=== PATIENT | female | born 1965 | race Caucasian/White ===

== ENCOUNTER → 2019-08-15 | Outpatient (CLI) | payer BC ==
--- NOTE | 2019-08-15 09:54 | FL ---
EXAMINATION TYPE: FL barium swallow DATE OF EXAM: 08/15/2019 CLINICAL HISTORY: Gastroesophageal reflux with history of hiatal hernia. TECHNIQUE: A double contrast esophagram is performed utilizing air and barium. A total of 1.15 enid ayla of fluoroscopic time was utilized during procedure. 39 fluoroscopic images were saved during the examination. COMPARISON: None FINDINGS: The esophagus shows normal motility and emptying into the stomach. No evidence of strictur e noted. There is a small hiatal hernia demonstrated at the time the largest in the right lateral dec ubitus position. Moderate degree intraesophageal reflux was seen during real time performance of this study. Incidental note of a left lateral [place]-Dandre diverticulum. IMPRESSION: 1. Small hiatal hernia and moderate intraesophageal reflux 2. Incidentally noted Óscar-Dandre diverticulum.
== END | disposition home or self-care (01) ==
LOC: RADUSWWP 08:47
PROVIDERS: ATTEND Surgery Plastic and Reconstructive Surgery
DX: K44.9 Diaphragmatic hernia without obstruction or gangrene (principal); K21.9 Gastro-esophageal reflux disease without esophagitis; Z88.5 Allergy status to narcotic agent
CPT/HCPCS: 74220

== ENCOUNTER 2019-09-28 07:29 | Day surgery (SDC) | payer BC ==
[2019-09-26 12:24] VITALS: BMI 45.7
[~2019-09-28 07:29] MED LIST: LACTATED RINGERS 1,000 ML IV SCH; LIDOCAINE 1% 20 ML VIAL (10MG/ML) FOR IV START INTRADERMA PRN
[2019-09-28 07:52] VITALS: RESP 16; TEMP 97.8
[2019-09-28 08:04] LABS: Glucose,Whole Blood 223 mg/dL (75-99)
[2019-09-28] MEDS ORDERED: PROPOFOL 10 MG/ML 20 ML VIAL IV ONE (08:07)
[2019-09-28] MEDS ORDERED: LIDOCAINE 1% INJ 10MG/ML (20 ML MDV) ONE (08:07)
--- NOTE | 2019-09-28 08:10 | P.GSHP ---
History of Present Illness H&P Date: 09/28/19 CHIEF COMPLAINT: GERD HISTORY OF PRESENT ILLNESS: The patient is a 54-year-old female who presents reports gastroesophageal reflux disease. Upper endoscopy was offered for further evaluation and management. PAST MEDICAL HISTORY: Please see list. PAST SURGICAL HISTORY: Please see list. MEDICATIONS: Please see list. ALLERGIES: Please see list. SOCIAL HISTORY: No illicit drug use FAMILY HISTORY: No reports of Crohn disease or ulcerative colitis. REVIEW OF ORGAN SYSTEMS: CONSTITUTIONAL: No reports of fevers or chills. GI: Denies any blood in stools or constipation. PHYSICAL EXAM: VITAL SIGNS: Stable GENERAL: Well-developed and pleasant in no acute distress. HEENT: No scleral icterus. Extraocular movements grossly intact. Moist buccal mucosa. NECK: Supple without lymphadenopathy. CHEST: Unlabored respirations. Equal bilateral excursions. CARDIOVASCULAR: Regular rate and rhythm. Distal 2+ pulses. ABDOMEN: Soft, nondistended. MUSCULOSKELETAL: No clubbing, cyanosis, or edema. ASSESSMENT: 1. Gastroesophageal reflux disease PLAN: 1. Recommend proceeding with an upper endoscopy Past Medical History Past Medical History: Diabetes Mellitus, GERD/Reflux, Hyperlipidemia, Hypertension Additional Past Medical History / Comment(s): chronic idiopathic urticaria, hiatal hernia, bronchitis in July History of Any Multi-Drug Resistant Organisms: None Reported Past Surgical History: Back Surgery, Orthopedic Surgery Additional Past Surgical History / Comment(s): rods,plates & screws in back, left knee surg. Past Anesthesia/Blood Transfusion Reactions: Postoperative Nausea & Vomiting (PONV) Additional Past Anesthesia/Blood Transfusion Reaction / Comment(s): has had once w/prior procedure Smoking Status: Never smoker Medications and Allergies Home Medications Medication Instructions Recorded Confirmed Type Aspirin 81 mg PO DAILY 09/26/19 09/28/19 History Calcium Carbonate/Vitamin D3 1 each PO DAILY 09/26/19 09/28/19 History [Calcium 600-Vit D3 400 Tablet] Cetirizine HCl [Zyrtec] 10 mg PO DAILY 09/26/19 09/28/19 History Enalapril [Vasotec] 10 mg PO DAILY 09/26/19 09/28/19 History Ferrous Sulfate [Feosol] 65 mg PO DAILY 09/26/19 09/28/19 History INSULIN ASPART (NovoLOG) [NovoLOG 0 unit SQ AC-TID 09/26/19 09/28/19 History (formulary)] Insulin Degludec [Tresiba] 50 units SQ QAM 09/26/19 09/28/19 History Lansoprazole [Prevacid] 30 mg PO DAILY 09/26/19 09/28/19 History Magnesium 400 mg PO DAILY 09/26/19 09/28/19 History Montelukast [Singulair] 10 mg PO DAILY 09/26/19 09/28/19 History Multivitamins, Thera [Multivitamin 1 tab PO DAILY 09/26/19 09/28/19 History (formulary)] Omalizumab [Xolair] 150 mg SQ Q30D 09/26/19 09/28/19 History [place]-3 Acid Ethyl Esters [Lovaza] 2 gm PO BID 09/26/19 09/28/19 History Simvastatin [Zocor] 20 mg PO HS 09/26/19 09/28/19 History Allergies Allergy/AdvReac Type Severity Reaction Status Date / Time hydromorphone [From Dilaudid] Allergy Rash/Hives Verified 09/26/19 10:52 Surgical - Exam Vital Signs Temp Pulse Resp BP Pulse Ox 97.8 F 87 16 160/85 95 09/28/19 07:45 09/28/19 07:45 09/28/19 07:45 09/28/19 07:45 09/28/19 07:45 Results - Labs Abnormal Lab Results - Last 24 Hours (Table) 09/28/19 Range/Units 07:50 POC Glucose (mg/dL) 223 H (75-99) mg/dL
--- NOTE | 2019-09-28 08:21 | P.PCN ---
Date of Procedure: 09/28/19 Description of Procedure: PREOPERATIVE DIAGNOSIS: Gastroesophageal reflux disease. Morbid obesity. POSTOPERATIVE DIAGNOSIS: Morbid obesity. Gastritis. Gastroesophageal reflux disease. Diaphragmatic hiatal hernia OPERATION: Esophagogastroduodenoscopy with biopsies along antrum. SURGEON: Sweta Gee MD ANESTHESIA: MAC. INDICATIONS: The patient is a 54-year-old female who presents with a history of reflux disease. Benefits and risks of the procedure were described. Informed consent was obtained. DESCRIPTION: The patient was brought into the endoscopy suite and laid in the left lateral decubitus position. An Olympus gastroscope was passed along the posterior oropharynx down to the distal esophagus where the squamocolumnar junction was encountered at 35 cm from the incisors. The stomach was entered and no bile reflux was found. Additional findings are listed below. Biopsies with cold f orceps were obtained of the antrum. The first through third portion of the duodenum was examined and unremarkable. Retroflexion of the scope confirmed Hill grade 4 lower esophageal valve. The squamocolumnar junction demonstrated LA grade B erosive esophagitis. The stomach was desufflated. The patient tolerated the procedure well. FINDINGS: Squamocolumnar junction 35 cm from the incisors. Diaphragmatic hiatus at 40 cm. Hiatal hernia, 5 cm Hill grade 4 lower esophageal valve. LA grade B erosive esophagitis. No active duodenitis. Chronic gastritis Few gastric polyps along the gastric cardia RECOMMENDATIONS: 1. Recommend repair of symptomatic diaphragmatic hiatal hernia 2. Upper endoscopy as needed. Plan - Discharge Summary Discharge Rx Participant: No New Discharge Prescriptions: Continue Multivitamins, Thera [Multivitamin (formulary)] 1 tab PO DAILY Aspirin 81 mg PO DAILY INSULIN ASPART (NovoLOG) [NovoLOG (formulary)] 0 unit SQ AC-TID Ferrous Sulfate [Iron (65 MG Elemental)] 65 mg PO DAILY Cetirizine HCl [Zyrtec] 10 mg PO DAILY Montelukast [Singulair] 10 mg PO DAILY Enalapril [Vasotec] 10 mg PO DAILY Simvastatin [Zocor] 20 mg PO HS [place]-3 Acid Ethyl Esters [Lovaza] 2 gm PO BID Lansoprazole [Prevacid] 30 mg PO DAILY Omalizumab [Xolair] 150 mg SQ Q30D Magnesium 400 mg PO DAILY Insulin Degludec [Tresiba] 50 units SQ QAM Calcium Carbonate/Vitamin D3 [Calcium 600-Vit D3 400 Tablet] 1 each PO DAILY Discharge Medication List Aspirin 81 mg PO DAILY 09/26/19 [History] Calcium Carbonate/Vitamin D3 [Calcium 600-Vit D3 400 Tablet] 1 each PO DAILY 09/26/19 [History] Cetirizine HCl [Zyrtec] 10 mg PO DAILY 09/26/19 [History] Enalapril [Vasotec] 10 mg PO DAILY 09/26/19 [History] Ferrous Sulfate [Iron (65 MG Elemental)] 65 mg PO DAILY 09/26/19 [History] INSULIN ASPART (NovoLOG) [NovoLOG (formulary)] 0 unit SQ AC-TID 09/26/19 [History] Insulin Degludec [Tresiba] 50 units SQ QAM 09/26/19 [History] Lansoprazole [Prevacid] 30 mg PO DAILY 09/26/19 [History] Magnesium 400 mg PO DAILY 09/26/19 [History] Montelukast [Singulair] 10 mg PO DAILY 09/26/19 [History] Multivitamins, Thera [Multivitamin (formulary)] 1 tab PO DAILY 09/26/19 [History] Omalizumab [Xolair] 150 mg SQ Q30D 09/26/19 [History] [place]-3 Acid Ethyl Esters [Lovaza] 2 gm PO BID 09/26/19 [History] Simvastatin [Zocor] 20 mg PO HS 09/26/19 [History] Follow up Appointment(s)/Referral(s): Sweta Gee MD [STAFF PHYSICIAN] - 10/11/19 Patient Instructions/Handouts: *Surgery [facility] - (Anesthesia) Endoscopy Discharge Instructions, Upper Endoscopy (DC), Hiatal Hernia (DC) Discharge Disposition: HOME SELF-CARE
[2019-09-28 08:24] VITALS: BP 140/83; PULSE 90
== END 2019-09-28 08:59 | disposition home or self-care (01) ==
LOC: ORWHC2ENDO 07:29
PROVIDERS: ATTEND Surgery Plastic and Reconstructive Surgery
DX: K29.50 Unspecified chronic gastritis without bleeding (principal); K21.0 Gastro-esophageal reflux disease with esophagitis; K22.10 Ulcer of esophagus without bleeding; K44.9 Diaphragmatic hernia without obstruction or gangrene; K31.7 Polyp of stomach and duodenum; I10 Essential (primary) hypertension; E11.9 Type 2 diabetes mellitus without complications; E78.5 Hyperlipidemia, unspecified; E66.01 Morbid (severe) obesity due to excess calories; L50.1 Idiopathic urticaria; Z88.5 Allergy status to narcotic agent; Z79.4 Long term (current) use of insulin; Z79.82 Long term (current) use of aspirin; Z79.899 Other long term (current) drug therapy; Z98.1 Arthrodesis status; Z98.890 Other specified postprocedural states; Z68.42 Body mass index [BMI] 45.0-49.9, adult
CPT/HCPCS: 43239; 88305; J2001; J2704

== ENCOUNTER → 2019-10-03 | Outpatient (CLI) | payer BC | END | disposition home or self-care (01) | LOC: LABWHC1 13:35 | PROVIDERS: ATTEND Surgery Plastic and Reconstructive Surgery | DX: Z01.818 Encounter for other preprocedural examination (principal) | CPT/HCPCS: 93005 ==

== ENCOUNTER → 2020-03-02 | Day surgery (SDC) | payer BC ==
[2020-02-28 10:26] VITALS: BMI 44.8
[~2020-03-02] MED LIST changes: +ACETAMINOPHEN TAB 500 MG TAB ONE; +ACETAMINOPHEN TAB 500 MG TAB PO STA; +CHLORHEXIDINE GLUCONATE 15 ML CUP MUCOUS MEM ONE; +DEXAMETHASONE SOD PHOSPHATE 10 MG/ML 1 ML VIAL IV ONE; +GABAPENTIN 300 MG CAP PO ONE; +HEPARIN SODIUM,PORCINE 5,000 UNIT/ML 1 ML VIAL ONE; +HEPARIN SODIUM,PORCINE 5,000 UNIT/ML 1 ML VIAL SQ ONE; +INSULIN ASPART (NovoLOG) 100 UNIT/ML VIAL SQ ONE; -LACTATED RINGERS 1,000 ML IV SCH; +LIDOCAINE 1% (10MG/ML) FOR IV START INTRADERMA ONE; -LIDOCAINE 1% 20 ML VIAL (10MG/ML) FOR IV START INTRADERMA PRN; +MIDAZOLAM 2 MG/2 ML VIAL IV PRN; +ONDANSETRON 4 MG/2 ML VIAL IVP ONE; +ONDANSETRON 4 MG/2 ML VIAL ONE; +ONDANSETRON ODT 4 MG TAB PO ONE; +PANTOPRAZOLE 40 MG/10 ML VIAL IV STA; +SCOPOLAMINE 1.5MG/72HR PATCH TRANSDERM ONE; +SCOPOLAMINE 1.5MG/72HR PATCH TRANSDERM STA; +TAMSULOSIN 0.4 MG CAP.ER.24H PO ONE; +fentaNYL (PF) 50 MCG/ML 2 ML AMP IV PRN
--- NOTE | 2020-03-02 06:23 | P.GSHP ---
History of Present Illness H&P Date: 03/02/20 CHIEF COMPLAINT: Paraesophageal hiatal hernia with gastroesophageal reflux disease. HISTORY OF PRESENT ILLNESS: The patient is a 54-year-old female who presents with paraesophageal hiatal hernia. She has completed an esophageal manometry including upper endoscopy workup. Now she presents for surgical intervention. PAST MEDICAL HISTORY: Please see list. PAST SURGICAL HISTORY: Please see list. MEDICATIONS: Please see list. ALLERGIES: Please see list. SOCIAL HISTORY: No illicit drug use FAMILY HISTORY: No reports of Crohn disease or ulcerative colitis. REVIEW OF ORGAN SYSTEMS: CONSTITUTIONAL: No reports of fevers or chills. GI: Denies any blood in stools or constipation. PHYSICAL EXAM: VITAL SIGNS: Stable GENERAL: Well-developed pleasant and in no acute distress. HEENT: No scleral icterus. Extraocular movements grossly intact. Moist buccal mucosa. NECK: Supple without lymphadenopathy. CHEST: Unlabored respirations. Equal bilateral excursions. CARDIOVASCULAR: Regular rate and rhythm. Distal 2+ pulses. ABDOMEN: Soft, nondistended. No peritoneal signs. MUSCULOSKELETAL: No clubbing, cyanosis, or edema. SKIN: Well-perfused. Good skin turgor. MANOMETRY: Shows no evidence of achalasia or scleroderma. ASSESSMENT: 1. Diaphragmatic paraesophageal hiatal hernia with severe gastroesophageal reflux disease. PLAN: 1. Recommend proceeding with a robotic paraesophageal hiatal hernia with possible mesh. 2. Benefits and risks of surgical intervention was discussed including possibility of open technique. 3. Inpatient hospitalization recommended of 2 nights 4. DVT prophylaxis. 5. Antibiotic prophylaxis. Past Medical History Past Medical History: Diabetes Mellitus, GERD/Reflux, Hyperlipidemia, Hypertension, Osteoarthritis (OA) Additional Past Medical History / Comment(s): chronic idiopathic urticaria, hiatal hernia, bronchitis, CATARACTS, TYPE 2 DIABETIC-DEXCOM G6 GLUCOSE MONITORING History of Any Multi-Drug Resistant Organisms: None Reported Past Surgical History: Back Surgery, Orthopedic Surgery Additional Past Surgical History / Comment(s): rods,plates & screws in back, left knee surg. Past Anesthesia/Blood Transfusion Reactions: Postoperative Nausea & Vomiting (PONV) Additional Past Anesthesia/Blood Transfusion Reaction / Comment(s): has had once w/prior procedure Smoking Status: Never smoker - Past Family History Father Family Medical History: Cancer Medications and Allergies Home Medications Medication Instructions Recorded Confirmed Type Aspirin 81 mg PO DAILY 09/26/19 02/28/20 History Calcium Carbonate/Vitamin D3 1 each PO DAILY 09/26/19 02/28/20 History [Calcium 600-Vit D3 400 Tablet] Cetirizine HCl [Zyrtec] 10 mg PO DAILY 09/26/19 02/28/20 History Enalapril [Vasotec] 15 mg PO DAILY 09/26/19 02/28/20 History Ferrous Sulfate [Iron (65 MG 65 mg PO DAILY 09/26/19 02/28/20 History Elemental)] Insulin Degludec [Tresiba] 26 units SQ QAM 09/26/19 02/28/20 History Lansoprazole [Prevacid] 30 mg PO DAILY 09/26/19 02/28/20 History Magnesium 400 mg PO HS 09/26/19 02/28/20 History Montelukast [Singulair] 10 mg PO DAILY 09/26/19 02/28/20 History Multivitamins, Thera [Multivitamin 1 tab PO DAILY 09/26/19 02/28/20 History (formulary)] Omalizumab [Xolair] 150 mg SQ Q30D 09/26/19 02/28/20 History [place]-3 Acid Ethyl Esters [Lovaza] 2 gm PO BID 09/26/19 02/28/20 History Simvastatin [Zocor] 20 mg PO HS 09/26/19 02/28/20 History Insulin Aspart (Niacinamide) 0 units SQ TID-W/MEALS 02/28/20 02/28/20 History [Fiasp 100 Unit/ml Flextouch] Allergies Allergy/AdvReac Type Severity Reaction Status Date / Time hydromorphone [From Dilaudid] Allergy Rash/Hives Verified 02/28/20 09:18
[2020-03-02 07:28] VITALS: BP 142/66; PULSE 93; RESP 18; TEMP 97.8
[2020-03-02] MEDS: LACTATED RINGERS 1,000 ML IV SCH ×2 (07:50→09:25)
[2020-03-02 07:52] LABS: Glucose,Whole Blood 349 mg/dL (75-99)
[2020-03-02 08:11] LABS: Basophils # (A) 0.1 k/uL (0-0.2); Basophils % (A) 1 %; Eosinophils # (A) 0.1 k/uL (0-0.7); Eosinophils % (A) 1 %; HCT 44.7 % (34.0-46.0); HGB 14.8 gm/dL (11.4-16.0); Lymphocytes # (A) 2.3 k/uL (1.0-4.8); Lymphocytes % (A) 28 %; MCH 28.2 pg (25.0-35.0); MCHC 33.1 g/dL (31.0-37.0); Mean Platelet Volume 8.2; Monocytes # (A) 0.4 k/uL (0-1.0); Monocytes % (A) 5 %; Neutrophils # (A) 5.1 k/uL (1.3-7.7); Neutrophils % (A) 63 %; Platelet Count 309 k/uL (150-450); RBC 5.26 m/uL (3.80-5.40); RDW 13.4 % (11.5-15.5); WBC 8.2 k/uL (3.8-10.6)
[2020-03-02 08:13] LABS: ALT 20 U/L (4-34); AST 28 U/L (14-36); African American GFR (CKD) >90 (>60 ml/min/1.73 sqM); Albumin 4.2 g/dL (3.5-5.0); Alkaline Phosphatase 65 U/L (38-126); Anion Gap 12 mmol/L; Blood Urea Nitrogen 21 mg/dL (7-17); Calcium 9.3 mg/dL (8.4-10.2); Carbon Dioxide 22 mmol/L (22-30); Chloride 100 mmol/L (98-107); Glucose 360 mg/dL (74-99); Non-African American GFR(CKD) >90 (>60 ml/min/1.73 sqM); Sodium 134 mmol/L (137-145); Total Bilirubin 0.7 mg/dL (0.2-1.3); Total Protein 7.4 g/dL (6.3-8.2)
[2020-03-02 08:16] LABS: Potassium 5.1 mmol/L (3.5-5.1)
[2020-03-02 08:55] LABS: Glucose,Whole Blood 327 mg/dL (75-99)
--- NOTE | 2020-03-02 11:50 | P.HPADDEND ---
H&P Addendum H&P Addendum Date: 03/02/20 This morning, I spoke to the patient prior to coming to the preanesthesia care unit. Patient had reported following a 2 week high-protein low-carb diet. She reports she was nervous and had gastroesophageal reflux disease. She was then taken back into the anesthesia care unit by the nurse. While operating, I was notified by preanesthesia care that patient's blood sugars were over 350s. As a result of these findings, case was canceled. I then sat with the patient and family after my case and went over why her blood sugars were so high. Patient reports discontinuing her baseline insulin upon recommendation of her cement tester assistant. She denies any follow-up with her cement tester assistant in the office. Additionally, patient had not followed up in 4 months since her surgical appointment with me. Patient was very upset about the cancellation. I reiterated safety first as high blood sugars increase his risk for surgical complications. For her gastroesophageal reflux disease, Protonix IV was administered for which she described relief. Patient advised to return home and may resume basal insulin and diet. I offered follow-up at [facility] diabetic care program to help obtain acceptable blood sugars of 150s. Patient reports she'll follow up with her cement tester assistant. She will follow-up with me in the office. Time including counseling over 30 minutes reviewed the patient
[2020-03-02 14:59] LABS: Hemoglobin A1C 7.7 % (4.0-6.0)
== END ==
LOC: OR 06:47
PROVIDERS: ATTEND Surgery Plastic and Reconstructive Surgery
DX: K44.9 Diaphragmatic hernia without obstruction or gangrene (principal); Z53.09 Procedure and treatment not carried out because of other contraindication; E11.36 Type 2 diabetes mellitus with diabetic cataract; H26.9 Unspecified cataract; K21.9 Gastro-esophageal reflux disease without esophagitis; I10 Essential (primary) hypertension; E78.5 Hyperlipidemia, unspecified; M19.90 Unspecified osteoarthritis, unspecified site; Z98.890 Other specified postprocedural states; Z79.4 Long term (current) use of insulin; Z79.82 Long term (current) use of aspirin; Z79.899 Other long term (current) drug therapy; Z88.5 Allergy status to narcotic agent; Z80.9 Family history of malignant neoplasm, unspecified
CPT/HCPCS: 80053; 85025; 83036; C9113

== ENCOUNTER 2020-06-01 07:19 | Observation (INO) | payer BC ==
[~2020-06-01 07:19] MED LIST changes: -ACETAMINOPHEN TAB 500 MG TAB ONE; -ACETAMINOPHEN TAB 500 MG TAB PO STA; -CHLORHEXIDINE GLUCONATE 15 ML CUP MUCOUS MEM ONE; -GABAPENTIN 300 MG CAP PO ONE; -HEPARIN SODIUM,PORCINE 5,000 UNIT/ML 1 ML VIAL ONE; -INSULIN ASPART (NovoLOG) 100 UNIT/ML VIAL SQ ONE; +LACTATED RINGERS 1,000 ML IV SCH; -LIDOCAINE 1% (10MG/ML) FOR IV START INTRADERMA ONE; +LIDOCAINE 1% (10MG/ML) FOR IV START INTRADERMA PRN; -MIDAZOLAM 2 MG/2 ML VIAL IV PRN; -ONDANSETRON 4 MG/2 ML VIAL ONE; -ONDANSETRON ODT 4 MG TAB PO ONE; -PANTOPRAZOLE 40 MG/10 ML VIAL IV STA; -SCOPOLAMINE 1.5MG/72HR PATCH TRANSDERM ONE; -SCOPOLAMINE 1.5MG/72HR PATCH TRANSDERM STA; -TAMSULOSIN 0.4 MG CAP.ER.24H PO ONE; -fentaNYL (PF) 50 MCG/ML 2 ML AMP IV PRN
[2020-06-01] MEDS ORDERED: CHLORHEXIDINE GLUCONATE 15 ML CUP MUCOUS MEM ONE (07:33)
[2020-06-01] MEDS ORDERED: PANTOPRAZOLE 40 MG/10 ML VIAL IV STA (07:33)
[2020-06-01] MEDS ORDERED: ENOXAPARIN 40 MG/0.4 ML SYRINGE SQ STA (07:33)
--- NOTE | 2020-06-01 07:33 | P.GSHP ---
History of Present Illness H&P Date: 06/01/20 CHIEF COMPLAINT: Paraesophageal hiatal hernia with gastroesophageal reflux disease. HISTORY OF PRESENT ILLNESS: The patient is a 54-year-old female who presents with paraesophageal hiatal hernia. She has completed an esophageal manometry including upper endoscopy workup. Now she presents for surgical intervention. PAST MEDICAL HISTORY: Please see list. PAST SURGICAL HISTORY: Please see list. MEDICATIONS: Please see list. ALLERGIES: Please see list. SOCIAL HISTORY: No illicit drug use FAMILY HISTORY: No reports of Crohn disease or ulcerative colitis. REVIEW OF ORGAN SYSTEMS: CONSTITUTIONAL: No reports of fevers or chills. GI: Denies any blood in stools or constipation. PHYSICAL EXAM: VITAL SIGNS: Stable GENERAL: Well-developed pleasant and in no acute distress. HEENT: No scleral icterus. Extraocular movements grossly intact. Moist buccal mucosa. NECK: Supple without lymphadenopathy. CHEST: Unlabored respirations. Equal bilateral excursions. CARDIOVASCULAR: Regular rate and rhythm. Distal 2+ pulses. ABDOMEN: Soft, nondistended. No peritoneal signs. MUSCULOSKELETAL: No clubbing, cyanosis, or edema. SKIN: Well-perfused. Good skin turgor. MANOMETRY: Shows no evidence of achalasia or scleroderma. ASSESSMENT: 1. Diaphragmatic paraesophageal hiatal hernia with severe gastroesophageal reflux disease. PLAN: 1. Recommend proceeding with a robotic paraesophageal hiatal hernia with possible mesh. 2. Benefits and risks of surgical intervention was discussed including possibility of open technique. 3. Inpatient hospitalization recommended of 2 nights 4. DVT prophylaxis. 5. Antibiotic prophylaxis. 6. She has also completed a very low caloric high-protein diet to address underlying hepatomegaly. Past Medical History Past Medical History: Diabetes Mellitus, GERD/Reflux, Hyperlipidemia, Hypertension, Osteoarthritis (OA), Skin Disorder Additional Past Medical History / Comment(s): chronic idiopathic urticaria, hiatal hernia, bronchitis, CATARACTS, TYPE 2 DIABETIC-DEXCOM G6 GLUCOSE MONITORING SYSTEM History of Any Multi-Drug Resistant Organisms: None Reported Past Surgical History: Back Surgery, Orthopedic Surgery Additional Past Surgical History / Comment(s): rods,plates & screws in back, left knee surg. EGD, COLONOSCOPY Past Anesthesia/Blood Transfusion Reactions: Postoperative Nausea & Vomiting (PONV) Additional Past Anesthesia/Blood Transfusion Reaction / Comment(s): has had once w/prior procedure Smoking Status: Never smoker - Past Family History Father Family Medical History: Cancer Medications and Allergies Home Medications Medication Instructions Recorded Confirmed Type Aspirin 81 mg PO DAILY 09/26/19 05/29/20 History Calcium Carbonate/Vitamin D3 1 each PO DAILY 09/26/19 05/29/20 History [Calcium 600-Vit D3 400 Tablet] Cetirizine HCl [Zyrtec] 10 mg PO DAILY 09/26/19 05/29/20 History Enalapril [Vasotec] 15 mg PO DAILY 09/26/19 05/29/20 History Ferrous Sulfate [Iron (65 MG 65 mg PO DAILY 09/26/19 05/29/20 History Elemental)] Insulin Degludec [Tresiba] 42 units SQ QAM 09/26/19 05/29/20 History Lansoprazole [Prevacid] 30 mg PO HS 09/26/19 05/29/20 History Magnesium 400 mg PO HS 09/26/19 05/29/20 History Montelukast [Singulair] 10 mg PO HS 09/26/19 05/29/20 History Multivitamins, Thera [Multivitamin 1 tab PO DAILY 09/26/19 05/29/20 History (formulary)] Omalizumab [Xolair] 150 mg SQ Q30D 09/26/19 05/29/20 History [place]-3 Acid Ethyl Esters [Lovaza] 2 gm PO BID 09/26/19 05/29/20 History Simvastatin [Zocor] 20 mg PO HS 09/26/19 05/29/20 History Insulin Aspart (Niacinamide) 0 units SQ TID-W/MEALS PRN 02/28/20 05/29/20 History [Fiasp 100 Unit/ml Flextouch] Allergies Allergy/AdvReac Type Severity Reaction Status Date / Time hydromorphone [From Dilaudid] Allergy Rash/Hives Verified 05/29/20 09:02
[2020-06-01] MEDS ORDERED: ACETAMINOPHEN TAB 500 MG TAB PO STA (07:34)
[2020-06-01 08:13] LABS: Glucose,Whole Blood 183 mg/dL (75-99)
[2020-06-01 08:24] LABS: Basophils # (A) 0.1 k/uL (0-0.2); Basophils % (A) 1 %; Eosinophils # (A) 0.1 k/uL (0-0.7); Eosinophils % (A) 2 %; HCT 45.9 % (34.0-46.0); HGB 15.6 gm/dL (11.4-16.0); Lymphocytes # (A) 1.9 k/uL (1.0-4.8); Lymphocytes % (A) 24 %; MCH 28.9 pg (25.0-35.0); MCV 84.9 fL (80.0-100.0); Mean Platelet Volume 7.5; Monocytes # (A) 0.4 k/uL (0-1.0); Monocytes % (A) 4 %; Neutrophils # (A) 5.4 k/uL (1.3-7.7); Neutrophils % (A) 68 %; Platelet Count 317 k/uL (150-450); RDW 12.7 % (11.5-15.5)
[2020-06-01 08:33] LABS: ALT 17 U/L (4-34); AST 21 U/L (14-36); African American GFR (CKD) >90 (>60 ml/min/1.73 sqM); Albumin 4.1 g/dL (3.5-5.0); Alkaline Phosphatase 81 U/L (38-126); Anion Gap 10 mmol/L; Blood Urea Nitrogen 22 mg/dL (7-17); Calcium 9.2 mg/dL (8.4-10.2); Carbon Dioxide 22 mmol/L (22-30); Chloride 103 mmol/L (98-107); Glucose 200 mg/dL (74-99); Non-African American GFR(CKD) >90 (>60 ml/min/1.73 sqM); Potassium 4.2 mmol/L (3.5-5.1); Sodium 135 mmol/L (137-145); Total Bilirubin 0.5 mg/dL (0.2-1.3); Total Protein 7.7 g/dL (6.3-8.2)
[2020-06-01] MEDS ORDERED: SCOPOLAMINE 1.5MG/72HR PATCH TRANSDERM ONE (08:50)
[2020-06-01] MEDS ORDERED: GLYCOPYRROLATE 0.2 MG/ML 2 ML VIAL ONE (09:23)
[2020-06-01] MEDS ORDERED: NEOSTIGMINE 1 MG/ML 10 ML VIAL ONE (09:23)
[2020-06-01] MEDS ORDERED: fentaNYL (PF) 50 MCG/ML 2 ML AMP ONE (09:23)
[2020-06-01] MEDS ORDERED: ROCURONIUM 10 MG/ML (10 ML VIAL) IV ONE (09:23)
[2020-06-01] MEDS ORDERED: SUCCINYLCHOLINE CHLORIDE 100 MG/5 ML SYR IV ONE (09:23)
[2020-06-01] MEDS ORDERED: MIDAZOLAM 2 MG/2 ML VIAL ONE (09:23)
[2020-06-01] MEDS ORDERED: LIDOCAINE 1% INJ 10MG/ML (20 ML MDV) ONE (09:23)
[2020-06-01] MEDS ORDERED: LABETALOL 5 MG/ML VIAL MDV ONE (09:23)
[2020-06-01] MEDS ORDERED: PROPOFOL 10 MG/ML 20 ML VIAL IV ONE (09:23)
[2020-06-01] MEDS ORDERED: PHENYLEPHRINE-0.9% NACL SYG 1 MG/10 ML SYRINGE ONE (09:23)
[2020-06-01] MEDS ORDERED: LIDOCAINE 1%-EPI 1:100,000 20 ML VIAL SQ ONE (09:56)
[2020-06-01] MEDS ORDERED: LACTATED RINGERS 1,000 ML IV ONE (10:22)
[2020-06-01 11:28] LABS: Glucose,Whole Blood 259 mg/dL (75-99)
[2020-06-01] MEDS ORDERED: INSULIN ASPART (NovoLOG) 100 UNIT/ML VIAL SQ ONE (11:40)
[2020-06-01] MEDS ORDERED: fentaNYL (PF) 50 MCG/ML 2 ML AMP IVP ONE (11:58)
[2020-06-01] MEDS ORDERED: NALOXONE 0.4 MG/ML 1 ML VIAL IV PRN (12:04)
[2020-06-01] MEDS ORDERED: diphenhydrAMINE 50 MG/ML 1 ML VIAL IVP PRN (12:04)
--- NOTE | 2020-06-01 12:09 | P.OP ---
Date of Procedure: 06/01/20 Description of Procedure: SURGEON: CELIA VEGA MD PREOPERATIVE DIAGNOSES: 1. Symptomatic paraesophageal diaphragmatic hiatal hernia 2. Gastroesophageal reflux disease. 3. Insulin-dependent diabetes, type II 4. Morbid obesity to excess calories, BMI 42.3 5. Hypertensive heart disease 6. Hyperlipidemia 7. Chronic idiopathic urticaria POSTOPERATIVE DIAGNOSES: 1. Symptomatic incarcerated midline paraesophageal diaphragmatic hiatal hernia, 4 x 4 cm 2. Gastroesophageal reflux disease. 3. Insulin-dependent diabetes, type II 4. Morbid obesity to excess calories, BMI 42.3 5. Hypertensive heart disease 6. Hyperlipidemia 7. Chronic idiopathic urticaria OPERATION: 1. Robotic-assisted da Shellie Xi laparoscopic repair of incarcerated paraesophageal hiatal hernia, 4 x 4 cm, with [place] Biopatch A 8 x 8 cm. 2. Intraoperative esophagogastroduodenoscopy 3. Placement of 56-[place] ANESTHESIA: General with local anesthetic. ESTIMATED BLOOD LOSS: 10 mL SPECIMENS REMOVED: None COMPLICATIONS: None. Condition: stable Disposition: floor FINDINGS: 1. Midline incarcerated paraesophageal hiatal hernia 4 x 4 cm 2. Intraoperative upper endoscopy confirms complete closure of hiatal hernia from Hill grade 4 to Hill grade 1 3. Intraesophageal length over 3+ centimeters INDICATIONS: The patient is a 54-year-old female who presents with epigastric abdominal pain, gastroesophageal reflux disease poorly controlled despite medications, and a symptomatic diaphragmatic hiatal hernia. Preoperative workup including upper endoscopy demonstrated a sliding hiatal hernia. She completed an esophageal manometry. Given the severity of symptoms, she had elected for surgical intervention. Benefits and risks including bleeding, infection, recurrence, dysphagia, injury to the lung, need for further surgery was described at length. Informed consent was obtained. DESCRIPTION: The patient was brought into the operating room and placed in supine position. Preoperatively she had received lovenox subcutaneously for DVT prophylaxis. After general induction, the abdomen was prepped and draped in standard sterile fashion. The patient had previously voided prior to coming to the operating room. [place] draping was placed along the abdomen. A timeout protocol was confirmed with the surgical team, for which the patient's name, procedure to be performed including DVT prophylaxis with bilateral SCDs, and preoperative antibiotics were also confirmed. A robotic da Shellie Xi system was prepped and primed. At 12 cm from the xiphoid to just below the umbilicus, proposed port sites were marked with indelible marker along the left axillary line, left mid-clavicular line with each ports were marked 10 cm from each other. A 5 mm 0 degrees laparoscopic trocar entry was performed along the left upper quadrant. The abdomen was insufflated to 15 mmHg pressure was tolerated well. Diagnostic laparoscopy demonstrated no injury to bowel, viscera, or mesentery. No injury had occurred to the small bowel or viscera. The liver was smooth, with sharp edges consistent with two-week high-protein low-carb diet. Previous trochar sites from cholecystectomy were used. Next, one 8 mm robotic port was placed along the right upper abdomen. An 8-mm port was were placed along the right lateral lateral abdominal wall. The camera 8-mm port was maintained along the epigastrium. Another 12 mm port was placed along the left upper abdominal wall after exchanging the 5 mm port. Please note that the ports were placed at least 20 cm away from the target anatomy. Care was taken to check that each robotic arm were safely away from collision with the bed or the patient. At the epigastrium, a medium sized [place] liver retractor was placed under direct visualization with the Iron Briquette Molder placed under the right shoulder of the patient. All robotic arms were used. The patient was repositioned in reverse Trendelenburg position at 21-degrees after lowering the bed. The robot was docked above the right side of the patient. Using a grasper for arm 3, a grasper for arm 1, including vessel sealer for arm 2, the robotic system was docked and primed as described. Instruments were interchanged by the information assistant. I had sat at the console. The gastrohepatic ligament was cleaved using a vessel sealer. Next, the phrenoesophageal ligament was mobilized and the distal esophagus was mobilized circumferentially. The left and right crura was identified. Circumferentially, the hernia sac was incised and brought into the peritoneal cavity. Moderate dissection into the mediastinum was performed to release the esophagus into the abdominal cavity. The paraesophageal hiatal hernia sac was also incised and divided from the esophagus. Care was taken to avoid any gastrotomy. The measured defect was consistent with 4 cm axial length and 4 cm in width. After dissection, the distal esophagus of 2+ cm was brought into the abdominal cavity. Once the hiatus and crura was dissected, 2-0 VLOC nonabsorbable suture was placed to reapproximate the diaphragmatic hiatus posteriorly. To buttress the repair, a [place] Biopatch A was prepared along the back table and cut in half of a naidu-hole fashion as to reinforce the repair as an underlay. The mesh was placed along the crural repair and tagged using horizontal mattress sutures using 2-0 VLOC. I went to the head of the bed to perform intraoperative esophagogastroduodenoscopy and placement of a 56Fr bougie. The bougie was passed along the posterior oropharynx into the stomach for esophageal dilation for 2 minutes then removed. An Olympus gastroscope was passed through posterior oropharynx. Retroflexion of the scope confirmed a Hill grade 1 lower esophageal valve. The stomach had been desufflated. No evidence of leaks were found of the esophagus or stomach. The squamocolumnar junction was at 35 cm from the incisors. The hiatus was at 32 cm from the incisors. The GI tract with desufflated This concluded the endoscopic portion of the case. The robot was undocked from the patient. I re-scrubbed into the case. All instruments and pneumoperitoneum and specimens were evacuated from the abdominal cavity. Incisions were reapproximated using 4-0 Monocryl in an interrupted subcuticular fashion. Liquid glue was applied to the skin. Local anesthetic was infiltrated in all wounds for postop analgesia. Multiple intra-abdominal films were obtained. At the end of the procedure, needle, sponge, and instrument count was verified correct by the surgical asst. The patient had tolerated the procedure well and was taken to the postanesthesia unit in stable condition.
[2020-06-01] MEDS ORDERED: ACETAMINOPHEN IV (For NPO) 1,000 MG in EMPTY BAG 1 BAG IVPB ONE (13:00)
[2020-06-01] MEDS: ALBUTEROL NEBULIZED 2.5 MG/3 ML INHALATION SCH ×2 (15:07→19:07)
[2020-06-01] MEDS: KETOROLAC 15 MG/ML 1 ML VIAL IVP SCH ×3 (16:18→23:42)
[2020-06-01] MEDS: HYOSCYAMINE ORAL DROPS 1.875 MG/15 ML BOTTLE PO SCH ×2 (16:36→23:42)
[2020-06-01] MEDS: 0.9% NACL WITH KCL 20 MEQ/L 1,000 ML IV SCH ×3 (16:36→23:38)
[2020-06-01] MEDS: SIMETHICONE 40 MG/0.6 ML DROPS 2,000 MG/30 ML BOTTLE PO SCH ×2 (16:37→23:43)
[2020-06-01] MEDS ORDERED: INSULIN ASPART (NovoLOG) 100 UNIT/ML VIAL SQ SCH (17:30)
[2020-06-01 17:59] LABS: Glucose,Whole Blood 214 mg/dL (75-99)
[2020-06-01] MEDS: DEXAMETHASONE SOD PHOSPHATE 4 MG/ML 1 ML VIAL IV SCH ×2 (18:49→23:44)
[2020-06-02 05:03] LABS: Glucose,Whole Blood 253 mg/dL (75-99)
[2020-06-02] MEDS: SIMETHICONE 40 MG/0.6 ML DROPS 2,000 MG/30 ML BOTTLE PO SCH ×4 (06:29→23:34)
[2020-06-02] MEDS: HYOSCYAMINE ORAL DROPS 1.875 MG/15 ML BOTTLE PO SCH ×4 (06:31→23:34)
[2020-06-02] MEDS: DEXAMETHASONE SOD PHOSPHATE 4 MG/ML 1 ML VIAL IV SCH (06:31)
[2020-06-02] MEDS: KETOROLAC 15 MG/ML 1 ML VIAL IVP SCH ×4 (06:32→21:16)
[2020-06-02 06:41] LABS: Glucose,Whole Blood 310 mg/dL (75-99)
[2020-06-02 07:22] LABS: Basophils % (A) 0 %; Eosinophils % (A) 0 %; HCT 42.5 % (34.0-46.0); HGB 13.8 gm/dL (11.4-16.0); Lymphocytes # (A) 1.1 k/uL (1.0-4.8); Lymphocytes % (A) 8 %; MCH 28.5 pg (25.0-35.0); MCHC 32.4 g/dL (31.0-37.0); Mean Platelet Volume 7.9; Monocytes # (A) 0.3 k/uL (0-1.0); Monocytes % (A) 2 %; Neutrophils # (A) 12.3 k/uL (1.3-7.7); Neutrophils % (A) 90 %; Platelet Count 287 k/uL (150-450); RBC 4.83 m/uL (3.80-5.40); WBC 13.7 k/uL (3.8-10.6)
[2020-06-02 07:29] LABS: Glucose,Whole Blood 281 mg/dL (75-99)
[2020-06-02 07:29] LABS: Glucose,Whole Blood 283 mg/dL (75-99)
[2020-06-02 07:30] LABS: Potassium 5.2 mmol/L (3.5-5.1)
[2020-06-02] MEDS ORDERED: INSULIN REGULAR 100 UNIT in SODIUM CHLORIDE 0.9% 100 ML IV SCH ×2 (07:30→07:45)
[2020-06-02 07:31] LABS: African American GFR (CKD) >90 (>60 ml/min/1.73 sqM); Anion Gap 10 mmol/L; Blood Urea Nitrogen 16 mg/dL (7-17); Calcium 8.4 mg/dL (8.4-10.2); Carbon Dioxide 18 mmol/L (22-30); Chloride 104 mmol/L (98-107); Magnesium 1.6 mg/dL (1.6-2.3); Non-African American GFR(CKD) >90 (>60 ml/min/1.73 sqM); Phosphorus 3.2 mg/dL (2.5-4.5); Sodium 132 mmol/L (137-145)
[2020-06-02] MEDS ORDERED: 1: MVI, ADULT NO.4 WITH VIT K 10 ML, THIAMINE 100 MG, FOLIC ACID 1 MG, POTASSIUM CHLORID IV SCH ×6 (08:00)
[2020-06-02] MEDS: ALBUTEROL NEBULIZED 2.5 MG/3 ML INHALATION SCH ×2 (08:32→11:27)
[2020-06-02] MEDS ORDERED: INSULIN DETEMIR (LEVEMIR) 100 UNIT/ML SYR SQ SCH ×2 (09:00→12:45)
[2020-06-02 09:07] LABS: Glucose,Whole Blood 278 mg/dL (75-99)
[2020-06-02 10:59] LABS: Glucose,Whole Blood 245 mg/dL (75-99)
[2020-06-02] MEDS: ENOXAPARIN 40 MG/0.4 ML SYRINGE SQ SCH (11:06)
[2020-06-02] MEDS: PANTOPRAZOLE 40 MG/10 ML VIAL IV SCH (11:07)
--- NOTE | 2020-06-02 11:16 | FL ---
EXAMINATION TYPE: FL UGI DATE OF EXAM: 06/02/2020 COMPARISON: NONE HISTORY: Postop Jermain fundoplication TECHNIQUE: A single water-soluble contrast UGI study is performed. FINDINGS: Data Warehouse Consultant image of the abdomen shows no pneumoperitoneum under the hemidiaphragms. There is normal esophageal emptying into the stomach with no evidence of obstruction. No evidence of abnormal contrast extravasation. Fluoroscopy time 56 seconds Total images obtained 7 IMPRESSION: No evidence of obstruction or leak postoperatively.
[2020-06-02 11:24] VITALS: BMI 42.3
[2020-06-02] MEDS: SODIUM CHLORIDE 0.9% 1,000 ML IV SCH (11:59)
--- NOTE | 2020-06-02 11:59 | P.PN ---
Subjective Progress Note Date: 06/02/20 CHIEF COMPLAINT: Gastroesophageal reflux disease HISTORY OF PRESENT ILLNESS: The patient is a 54-year-old female status post hiatal hernia repair. No reports of nausea. Blood sugars have been elevated over 300+ ROS: No reports of nausea and vomiting. No bowel movements. No fevers or chills. No new chest pain. No productive sputum PHYSICAL EXAM: VITAL SIGNS: Reviewed CONSTITUTIONAL: Well developed and in no acute distress. EYES: Conjuctivae without sclera icterus. Extraocular movements grossly intact. HEAD, EARS, NOSE, THROAT: Moist buccal mucosa. Head is atraumatic, normocephalic. Hears conversational speech. No nasal drainage. NECK: Supple. No thyroidomegaly. RESPIRATORY: Non-labored respirations and equal bilateral excursions. CARDIOVASCULAR: Palpable 2+ radial pulses. ABDOMEN: Incisions clean dry and intact. Soft. MUSCULOSKELETAL: No gross deformity of the lower extremities noted. No clubbing. No cyanosis. SKIN: Good skin turgor. Well perfused. NEUROLOGIC: Cranial nerves II through XII grossly intact. No focal or lateralizing signs. PSYCH: Appropriate affect. Alert and oriented to person, place and time. CLINICAL LABS: White blood cell count normal elevator 13.7. Magnesium level elevated 1.6. Blood sugars elevated 250-300 STUDIES: Esophagram independently reviewed without leak or obstruction. No recurrent hiatal hernia. ASSESSMENT: 1. Gastroesophageal reflux disease PLAN: 1. Recommend tight glucose control. Hemoglobin A1c sent. Last hemoglobin A1c 7.7. Decadron discontinued. 2. Correction of low magnesium level. 3. Continue hospitalization for correction of Magnesium and high blood sugars. 4. Bariatric clears for diet. Objective - Vital Signs Vital signs: Vital Signs Temp 97.9 F 06/02/20 09:48 Pulse 105 H 06/02/20 09:48 Resp 18 06/02/20 09:48 BP 111/67 06/02/20 09:48 Pulse Ox 95 06/02/20 09:48 Intake & Output 06/01/20 06/02/20 06/02/20 18:59 06:59 18:59 Intake Total 1900 34.062 Output Total 510 800 550 Balance 1390 -800 -515.938 Weight 108.4 kg 108.4 kg Intake: IV 1900 Intake, IV Titration 34.062 Amount Insulin Regular 100 unit 34.062 In Sodium Chloride 0.9% 100 ml @ Titrate IV .Q0M ON LICENSE OF [facility] Rx#:[id number] Output: Urine 500 800 550 Estimated Blood Loss 10 Other: Voiding Method Toilet # Voids 400 - Labs CBC & Chem 7: 06/02/20 06:55 06/02/20 06:55 Labs: Abnormal Lab Results - Last 24 Hours (Table) 06/01/20 06/02/20 06/02/20 Range/Units 17:55 05:02 06:39 WBC (3.8-10.6) k/uL Neutrophils # (1.3-7.7) k/uL Sodium (137-145) mmol/L Potassium (3.5-5.1) mmol/L Carbon Dioxide (22-30) mmol/L POC Glucose (mg/dL) 214 H 253 H 310 H (75-99) mg/dL 06/02/20 06/02/20 06/02/20 Range/Units 06:55 06:55 07:26 WBC 13.7 H (3.8-10.6) k/uL Neutrophils # 12.3 H (1.3-7.7) k/uL Sodium 132 L (137-145) mmol/L Potassium 5.2 H (3.5-5.1) mmol/L Carbon Dioxide 18 L (22-30) mmol/L POC Glucose (mg/dL) 283 H (75-99) mg/dL 06/02/20 06/02/20 06/02/20 Range/Units 07:27 09:01 10:58 WBC (3.8-10.6) k/uL Neutrophils # (1.3-7.7) k/uL Sodium (137-145) mmol/L Potassium (3.5-5.1) mmol/L Carbon Dioxide (22-30) mmol/L POC Glucose (mg/dL) 281 H 278 H 245 H (75-99) mg/dL Assessment and Plan (1) Morbid obesity due to excess calories Current Visit: Yes Status: Acute Code(s): E66.01 - MORBID (SEVERE) OBESITY DUE TO EXCESS CALORIES SNOMED Code(s): 644260776 (2) Insulin dependent diabetes mellitus Current Visit: Yes Status: Acute Code(s): RRG7086 - SNOMED Code(s): 73 430538 (3) Gastro-esophageal reflux disease with esophagitis Current Visit: No Status: Acute Code(s): K21.0 - GASTRO-ESOPHAGEAL REFLUX DISEASE WITH ESOPHAG * DO NOT USE * SNOMED Code(s): 379480428 (4) Hiatal hernia Current Visit: No Status: Acute Code(s): K44.9 - DIAPHRAGMATIC HERNIA WITHOUT OBSTRUCTION OR GANGRENE SNOMED Code(s): 30372306
[2020-06-02] MEDS: lisinopriL 10 MG TAB PO SCH (12:07)
[2020-06-02 12:56] LABS: Glucose,Whole Blood 259 mg/dL (75-99)
[2020-06-02] MEDS: INSULIN ASPART (NovoLOG) 100 UNIT/ML VIAL SQ SCH ×3 (13:00→21:20)
[2020-06-02] MEDS: MAGNESIUM SULFATE-D5W PMX 1 GM in DEXTROSE/WATER 1 100ML.BAG IVPB SCH ×4 (13:20→17:42)
[2020-06-02] MEDS ORDERED: ACETAMINOPHEN TAB 500 MG TAB PO PRN (13:46)
[2020-06-02 15:14] LABS: Glucose,Whole Blood 217 mg/dL (75-99)
[2020-06-02 17:03] LABS: Glucose,Whole Blood 156 mg/dL (75-99)
[2020-06-02 18:33] LABS: Glucose,Whole Blood 261 mg/dL (75-99)
[2020-06-02 21:16] LABS: Hemoglobin A1C 7.5 % (4.0-6.0)
[2020-06-02 21:30] LABS: Glucose,Whole Blood 253 mg/dL (75-99)
[2020-06-03] MEDS: KETOROLAC 15 MG/ML 1 ML VIAL IVP SCH ×2 (06:01→06:29)
[2020-06-03] MEDS: SIMETHICONE 40 MG/0.6 ML DROPS 2,000 MG/30 ML BOTTLE PO SCH ×2 (06:28→12:49)
[2020-06-03] MEDS: HYOSCYAMINE ORAL DROPS 1.875 MG/15 ML BOTTLE PO SCH ×2 (06:28→12:48)
[2020-06-03] MEDS: SODIUM CHLORIDE 0.9% 1,000 ML IV SCH (06:31)
[2020-06-03] MEDS: INSULIN ASPART (NovoLOG) 100 UNIT/ML VIAL SQ SCH ×2 (06:42→12:58)
[2020-06-03 06:45] LABS: Glucose,Whole Blood 132 mg/dL (75-99)
[2020-06-03 07:12] LABS: Basophils % (A) 0 %; Eosinophils % (A) 0 %; HCT 39.6 % (34.0-46.0); HGB 13.1 gm/dL (11.4-16.0); Lymphocytes # (A) 2.9 k/uL (1.0-4.8); Lymphocytes % (A) 25 %; MCH 28.9 pg (25.0-35.0); MCHC 33.2 g/dL (31.0-37.0); MCV 87.1 fL (80.0-100.0); Mean Platelet Volume 7.4; Monocytes # (A) 0.5 k/uL (0-1.0); Monocytes % (A) 4 %; Neutrophils # (A) 8.1 k/uL (1.3-7.7); Neutrophils % (A) 70 %; Platelet Count 300 k/uL (150-450); RBC 4.54 m/uL (3.80-5.40); RDW 13.2 % (11.5-15.5); WBC 11.6 k/uL (3.8-10.6)
[2020-06-03 07:23] LABS: African American GFR (CKD) >90 (>60 ml/min/1.73 sqM); Anion Gap 5 mmol/L; Blood Urea Nitrogen 15 mg/dL (7-17); Calcium 8.1 mg/dL (8.4-10.2); Carbon Dioxide 25 mmol/L (22-30); Chloride 105 mmol/L (98-107); Glucose 135 mg/dL (74-99); Non-African American GFR(CKD) >90 (>60 ml/min/1.73 sqM); Potassium 4.1 mmol/L (3.5-5.1); Sodium 135 mmol/L (137-145)
[2020-06-03] MEDS ORDERED: bisacodyL 5 MG TABLET.DR PO PRN (08:00)
[2020-06-03 08:41] VITALS: RESP 20
[2020-06-03] MEDS: ENOXAPARIN 40 MG/0.4 ML SYRINGE SQ SCH (08:54)
[2020-06-03] MEDS: PANTOPRAZOLE 40 MG/10 ML VIAL IV SCH (08:54)
[2020-06-03] MEDS: lisinopriL 10 MG TAB PO SCH (09:14)
[2020-06-03 12:10] VITALS: BP 131/82; PULSE 82; TEMP 97.4
[2020-06-03 12:42] LABS: Glucose,Whole Blood 166 mg/dL (75-99)
--- NOTE | 2020-06-03 14:16 | P.DS ---
Providers Date of admission: 06/02/20 00:03 Expected date of discharge: 06/03/20 Attending physician: Sweta Gee Primary care physician: Stated None - Discharge Diagnosis(es) (1) Morbid obesity due to excess calories Current Visit: Yes Status: Acute (2) Insulin dependent diabetes mellitus Current Visit: Yes Status: Acute (3) Gastro-esophageal reflux disease with esophagitis Current Visit: No Status: Acute (4) Hiatal hernia Current Visit: No Status: Acute Hospital Course: POSTOPERATIVE DIAGNOSES: 1. Symptomatic incarcerated midline paraesophageal diaphragmatic hiatal hernia, 4 x 4 cm 2. Gastroesophageal reflux disease. 3. Insulin-dependent diabetes, type II 4. Morbid obesity to excess calories, BMI 42.3 5. Hypertensive heart disease 6. Hyperlipidemia 7. Chronic idiopathic urticaria COURSE: The patient is a 54-year-old female who presented with epigastric abdominal pain, gastroesophageal reflux disease poorly controlled d espite medications, and a symptomatic diaphragmatic hiatal hernia. Preoperative workup including upper endoscopy demonstrated a sliding hiatal hernia. She completed an esophageal manometry. Given the severity of symptoms, she had elected for surgical intervention. Following surgery, her reflux had resolved. Her blood sugars were elevated and treated with insulin gtt. Dietary education for post-hiatal hernia reviewed in detail. Prior to discharge she was tolerating diet. Her pain was well controlled. Esophagram reviewed show no recurrent hernia or moderate obstruction. Patient was stable for discharge. Procedures: OPERATION: 1. Robotic-assisted da Shellie Xi laparoscopic repair of incarcerated paraesophageal hiatal hernia, 4 x 4 cm, with [place] Biopatch A 8 x 8 cm. 2. Intraoperative esophagogastroduodenoscopy 3. Placement of 55-[place] ANESTHESIA: General with local anesthetic. ESTIMATED BLOOD LOSS: 10 mL SPECIMENS REMOVED: None COMPLICATIONS: None. Condition: stable Disposition: floor FINDINGS: 1. Midline incarcerated paraesophageal hiatal hernia 4 x 4 cm 2. Intraoperative upper endoscopy confirms complete closure of hiatal hernia from Hill grade 4 to Hill grade 1 3. Intraesophageal length over 3+ centimeters Patient Condition at Discharge: Good Plan - Discharge Summary Discharge Rx Participant: Yes New Discharge Prescriptions: New Simethicone 40 mg/0.6 ml Drops [Mylicon Drops] 80 mg PO Q6HR ml bisacodyL [Dulcolax] 5 mg PO DAILY PRN #10 tablet.dr PRN Reason: Constipation Simethicone 40 mg/0.6 ml Drops [Mylicon Drops] 40 mg PO PCHS PRN #30 ml PRN Reason: Gas Ondansetron Odt [Zofran Odt] 4 mg PO Q8HR PRN #9 tab PRN Reason: Nausea Acetaminophen Tab [Tylenol Tab] 1,000 mg PO Q6HR PRN #30 tablet PRN Reason: Pain Continue Multivitamins, Thera [Multivitamin (formulary)] 1 tab PO DAILY Aspirin 81 mg PO DAILY Ferrous Sulfate [Iron (65 MG Elemental)] 65 mg PO DAILY Cetirizine HCl [Zyrtec] 10 mg PO DAILY Montelukast [Singulair] 10 mg PO HS Enalapril [Vasotec] 15 mg PO DAILY Simvastatin [Zocor] 20 mg PO HS Romayor-3 Acid Ethyl Esters [Lovaza] 2 gm PO BID Omalizumab [Xolair] 150 mg SQ Q30D Magnesium 400 mg PO HS Insulin Degludec [Tresiba] 42 units SQ QAM Calcium Carbonate/Vitamin D3 [Calcium 600-Vit D3 400 Tablet] 1 each PO DAILY Insulin Aspart (Niacinamide) [Fiasp 100 Unit/ml Flextouch] 0 units SQ TID- W/MEALS PRN PRN Reason: ELEVATED CBG Semaglutide [Ozempic] 0.25 mg SQ Q7D Discontinued Lansoprazole [Prevacid] 30 mg PO HS Discharge Medication List Aspirin 81 mg PO DAILY 09/26/19 [History] Calcium Carbonate/Vitamin D3 [Calcium 600-Vit D3 400 Tablet] 1 each PO DAILY 09/26/19 [History] Cetirizine HCl [Zyrtec] 10 mg PO DAILY 09/26/19 [History] Enalapril [Vasotec] 15 mg PO DAILY 09/26/19 [History] Ferrous Sulfate [Iron (65 MG Elemental)] 65 mg PO DAILY 09/26/19 [History] Insulin Degludec [Tresiba] 42 units SQ QAM 09/26/19 [History] Magnesium 400 mg PO HS 09/26/19 [History] Montelukast [Singulair] 10 mg PO HS 09/26/19 [History] Multivitamins, Thera [Multivitamin (formulary)] 1 tab PO DAILY 09/26/19 [History] Omalizumab [Xolair] 150 mg SQ Q30D 09/26/19 [History] Romayor-3 Acid Ethyl Esters [Lovaza] 2 gm PO BID 09/26/19 [History] Simvastatin [Zocor] 20 mg PO HS 09/26/19 [History] Insulin Aspart (Niacinamide) [Fiasp 100 Unit/ml Flextouch] 0 units SQ TID-W/TRUDY LS PRN 02/28/20 [History] Semaglutide [Ozempic] 0.25 mg SQ Q7D 06/02/20 [History] Acetaminophen Tab [Tylenol Tab] 1,000 mg PO Q6HR PRN #30 tablet 06/03/20 [Rx] Ondansetron Odt [Zofran Odt] 4 mg PO Q8HR PRN #9 tab 06/03/20 [Rx] Simethicone 40 mg/0.6 ml Drops [Mylicon Drops] 40 mg PO PCHS PRN #30 ml 06/03/20 [Rx] Simethicone 40 mg/0.6 ml Drops [Mylicon Drops] 80 mg PO Q6HR ml 06/03/20 [Rx] bisacodyL [Dulcolax] 5 mg PO DAILY PRN #10 tablet. 06/03/20 [Rx] Follow up Appointment(s)/Referral(s): Sweta Gee MD [STAFF PHYSICIAN] - 06/05/20 (You are to call the office on Thursday morning for a time for your appointment on Thursday with Dr. Gee) Patient Instructions/Handouts: Clear Liquid Diet (DC), Pain Management After Surgery (DC), Nutrition after Bariatric Surgery (DC), Laparoscopic Hiatal Hernia Repair (DC) Activity/Diet/Wound Care/Special Instructions: Liquid diet only. No carbonated beverages. No straws. No lifting over 4 pounds in 4 weeks, July 02December shower. No bath tub soaks for 2 weeks until June 15 May take [id number] Tylenol for pain. Do not remove scopolamine patch for 3 days, if present A1C is 7.5% Do not pick at your incisions. They are covered in glue which will fall off on its own. Tylenol may be taken for pain every 6 hours. Please refer to your handout on pain management for further tips on pain control. Call Dr. Gee if you develop a fever over 100, increase in pain not controlled by Tylenol, bleeding from your incisions, vomiting, or if you have any other questions or concerns. Please call Dr Gee's office on Thursday to get an appointment time for Thursday to be see for post-operative follow up. Discharge Disposition: HOME SELF-CARE
== END 2020-06-03 15:15 | disposition home or self-care (01) ==
LOC: OR 07:19 → 6PED 12:41 → OR 06-02 00:33
PROVIDERS: ADMIT Surgery Plastic and Reconstructive Surgery; ATTEND Surgery Plastic and Reconstructive Surgery
DX: K44.0 Diaphragmatic hernia with obstruction, without gangrene (principal); K21.00 Gastro-esophageal reflux disease with esophagitis, without bleeding; R16.0 Hepatomegaly, not elsewhere classified; E11.9 Type 2 diabetes mellitus without complications; E78.5 Hyperlipidemia, unspecified; I11.9 Hypertensive heart disease without heart failure; L98.9 Disorder of the skin and subcutaneous tissue, unspecified; M19.90 Unspecified osteoarthritis, unspecified site; L50.1 Idiopathic urticaria; Z79.899 Other long term (current) drug therapy; Z79.82 Long term (current) use of aspirin; Z79.4 Long term (current) use of insulin; Z88.5 Allergy status to narcotic agent; E66.01 Morbid (severe) obesity due to excess calories; Z68.41 Body mass index [BMI] 40.0-44.9, adult; Z87.09 Personal history of other diseases of the respiratory system; Z80.9 Family history of malignant neoplasm, unspecified
CPT/HCPCS: 43282; S2900; 74240; 80048; 80051; 80053; 82310; 82565; 83036; 83735; 84100; 84520; 85025; 94640